=== PATIENT | female | born 1940 | race Caucasian/White ===

== ENCOUNTER → 2016-11-10 | Outpatient (CLI) | payer OTHER ==
--- NOTE | 2016-11-10 14:36 | MA ---
Left Unilateral Digital Diagnostic Mammogram History: Asymmetry on previous diagnostic mammograms. Comparison: Mammograms through February 10, 2007, left breast ultrasound May 04, 2016. Technique: MLO spot compression views, CC, MLO, and XCCL view were obtained. Findings: There is a persistent asymmetry in the deep superior left breast that appears to be just la teral to the nipple on the XCCL view. No suspicious calcifications are identified. Chronic nipple inv ersion is noted. Impression: Persistent focal asymmetry in the superior left breast. BI-RADS 0: Needs additional imagi ng evaluation. Recommendation: Ultrasound, which will be performed later the same day. Please see ultrasound report and recommendations. [facility] will send a result letter to the patient.
--- NOTE | 2016-11-10 16:05 | US ---
Diagnostic Left Breast Ultrasound History: Asymmetry on mammograms. Comparison: Diagnostic mammogram same day. Technique: Limited grayscale and Doppler ultrasound in the region of mammographic abnormality is perf ormed. Real-time sonography is performed by the radiologist. Findings: There is a subtle hypoechoic posterior shadowing 4 x 5 x 3 mm structure at 11:30 approximat laurie 5 cm from the nipple (initially labeled as 7 cm from the nipple), corresponding to the finding on mammograms. Scattered tiny simple cysts are present, unrelated to the mammographic asymmetry. Impression: 5 mm left breast mass at 11:30 5 cm from the nipple. BI-RADS 4: Suspicious Finding. Recommendation: Ultrasound-guided biopsy of the mass is recommended. Findings and recommendations wer e discussed with the patient. The schedulers will call her to arrange the biopsy. Findings discussed with Aida Sierra's nurse, November 10, 2016 at 1602 hours. The need for an order was conveyed. An order for ultrasound-guided left breast biopsy can be faxed to [phone]. [facility] will send a result letter to the patient.
== END ==
LOC: CIMAGING 13:09
PROVIDERS: ATTEND Family Medicine
DX: N63 Unspecified lump in breast (principal)
CPT/HCPCS: 76641; G0206

== ENCOUNTER → 2016-11-25 | Outpatient (CLI) | payer OTHER ==
--- NOTE | 2016-11-25 12:48 | DX ---
DEXA Bone Mineral Densitometry Clinical Indications: Postmenopausal, history of T6, T8 and T9 compressions. Screening for osteoporo sis, possible history of osteoporosis medication Comparison: 10/17/2014 (low bone density) Technique: Bone Mineral Densitometry (BMD) by Dual Energy X-Ray Absorptiometry (DEXA) was performed utilizing the [employer] scanner. The lumbar spine was evaluated in the AP projection. The bilat eral hips and forearm were evaluated in the AP projection. Vertebral fracture assessment was also pe rformed. AP Lumbar Spine: The L1, L2, L3 and L4 vertebral bodies were evaluated. BMD: 1.123 gm/cm2 T-score: -0.6 SD Z-score: 1.0 SD Significantly increased by 8.7% AP Left Hip: Neck BMD: 0.739 gm/cm2 T-score: -2.2 SD Z-score: -0.2 SD No significant change in total BMD AP Right Hip: Neck BMD: 0.691 gm/cm2 T-score: -2.5 SD Z-score: -0.5 SD No significant change in total BMD AP Right Forearm, 10/20: BMD: 0.736 gm/cm2 T-score: -1.6 SD Z-score: 0.9 SD No significant change. Vertebral Fracture Assessment: No significant fracture deformity. No prevertebral aortic calcificati on, significant marginal bone spurring, facet arthrosis, or intrinsic vertebral body sclerosis that would effect the accuracy of the lumbar spine BMD measurement. Conclusion: Considering the lowest measured site, the patient is osteoporotic and at increased risk for additional fractures.. The ten year FRAX risk for any major osteoporotic fracture is 18.7 % and for a hip fracture is 6.4%. According to the recommendations of the [employer]opor[employer], this patient would be a goo d candidate for bone strengthening pharmacologic intervention. Any bone loss in this patient is probably related to aging or estrogen deficiency. Consider excluding secondary metabolic causes of bone loss (reported to be present in as many as 30% of patients with normal Z scores). Basic laboratory evaluation might include blood chemistries (calci um, phosphorus, alkaline phosphatase, liver function tests, creatinine, total protein), complete bloo d count, serum 25-OH- vitamin D3 level, 24-hour urine calcium, serum TSH and serum PTH. Targeted l aboratory testing based on individual patient circumstances might include serum electrophoresis (SPEP or UPEP), anti-tissue transglutaminase antibody levels (celiac disease) , serum bone specific alkal ine phosphatase, bone turnover markers (urine, serum) or fibroblast growth factor 23 (FGF 23)(evaluat e for unexplained osteomalacia). If secondary causes are excluded, then consider initiating treatment with a bisphosphonate (such as F osamax, Actonel or Boniva). If the patient is unable to use an oral bisphosphonate, another agent suc h as IV bisphosphonates (Boniva or Reclast), teriparatide (Forteo), a selective estrogen receptor mo dulator (Evista) or Denosumab ( anti RANKL monoclonal antibody) might be considered. If antiresorptive therapy is initiated and if clinically indicated, consider obtaining a baseline and 3 month followup bone resorption marker (NTX, CTX, TRAP5b or Pyridinoline, deoxypyridinoline) to mon itor the therapeutic effect. Supplementing an insufficient diet to achieve total intakes of 1500 mg calcium and 800 International Units of vitamin D daily should be considered. Osteoporosis prevention and treatment begins by modify ing risk factors. The patient should be encouraged to participate in a regular exercise program that includes weightbearing and muscle strengthening regimens, as is clinically appropriate. Recommend follow-up DEXA in one year to assess the efficacy of pharmacologic intervention and/or jayesh ection of appropriate secondary cause.
== END ==
LOC: FIMAGING 10:13
PROVIDERS: ATTEND Internal Medicine Endocrinology, Diabetes & Metabolism
DX: Z13.820 Encounter for screening for osteoporosis (principal); M81.0 Age-related osteoporosis without current pathological fracture; S22.000A Wedge compression fracture of unspecified thoracic vertebra, initial encounter for closed fracture; Z78.0 Asymptomatic menopausal state; E55.9 Vitamin D deficiency, unspecified; E21.0 Primary hyperparathyroidism

== ENCOUNTER → 2016-12-02 | Outpatient (CLI) | payer OTHER ==
[~2016-12-02] MED LIST: THROMBIN (RECOMBINANT) 5,000 UNIT VIAL TP ONE
== END ==
LOC: FIMAGING 11:32
PROVIDERS: ATTEND Family Medicine
PROC: 0HBU3ZX Excision of Left Breast, Percutaneous Approach, Diagnostic (ICD-10-PCS; principal; 2016-12-02)
DX: C50.912 Malignant neoplasm of unspecified site of left female breast (principal)
CPT/HCPCS: 19083; 88360; 88361; G0206